=== PATIENT | female | born 1985 | race Two or more races ===

== ENCOUNTER 2016-12-26 17:12 | Emergency (ER) | payer MEDICAID ==
[~2016-12-26] VITALS: Ht 162.6 cm; Wt 87.8 kg
[2016-12-26 18:32] LABS: BLOOD UREA NITROGEN 6 mg/dL (7-18)
[2016-12-26] MEDS ORDERED: BUTALB/APAP/CAFFEINE 50MG/325MG/40MG PO ONE (19:00)
[2016-12-26 19:40] VITALS: BP 116/75
== END 2016-12-26 19:42 | disposition home or self-care (01) ==
LOC: ED 19:36
DX: G44.219 Episodic tension-type headache, not intractable (principal); J02.9 Acute pharyngitis, unspecified
CPT/HCPCS: 36415; 80048; 82040; 85025; 99284

== ENCOUNTER 2020-04-20 18:26 | Emergency (ER) | payer MEDICAID ==
[~2020-04-20] VITALS: Ht 162.6 cm; Wt 92.8 kg
[2020-04-20 18:36] VITALS: BP 104/46
--- NOTE | 2020-04-20 19:09 | NUR ---
FURNACE OPERATOR OIL OR GAS: PT AMBULATORY TO ROOM WITH STEADY GAIT AT THIS TIME WITH BUFFING MACHINE OPERATOR SEMIAUTOMATIC.
[2020-04-20] MEDS ORDERED: ALBUTEROL SULFATE 2.5 MG/3 ML NPPB ONE (19:30)
[2020-04-20] MEDS ORDERED: DEXAMETHASONE 4 MG TABLET PO ONE (19:30)
[2020-04-20] MEDS ORDERED: DEXAMETHASONE 4 MG TABLET ONE (19:54)
[2020-04-20] MEDS ORDERED: ALBUTEROL SULFATE 2.5 MG/3 ML ONE (19:55)
== END 2020-04-20 20:06 | disposition home or self-care (01) ==
LOC: ED 19:30
DX: J45.909 Unspecified asthma, uncomplicated (principal); R06.00 Dyspnea, unspecified; R07.89 Other chest pain; R05 Cough; J02.9 Acute pharyngitis, unspecified
CPT/HCPCS: 71046; 93005; 94640; 99283; J7613

== ENCOUNTER 2020-08-14 22:14 | Emergency (ER) | payer MEDICAID ==
[~2020-08-14] VITALS: Ht 162.6 cm; Wt 87.8 kg
[2020-08-14] MEDS ORDERED: SODIUM CHLORIDE FLUSH 10ML SYR IVF ONE (22:30)
[2020-08-14] MEDS ORDERED: ONDANSETRON 2MG/ML, 2ML IVPush ONE (22:30)
[2020-08-14] MEDS ORDERED: HYDROmorphone 2 MG/ML, 1ML IVPush PRN (22:30)
[2020-08-14] MEDS ORDERED: SODIUM CHLORIDE 0.9% 1,000ML IVBOLUS ONE (22:30)
[2020-08-14 22:42] LABS: MICROSCOPIC NOT IND
[2020-08-14] MEDS ORDERED: ONDANSETRON 2MG/ML, 2ML ONE (22:43)
[2020-08-14] MEDS ORDERED: HYDROmorphone 2 MG/ML, 1ML ONE (22:43)
[2020-08-14 22:52] LABS: BASOPHILS % (AUTO) 1 % (0-1); EOSINOPHILS % (AUTO) 2 % (1-7); LYMPHOCYTES % (AUTO) 33 % (22-44); MEAN CORPUSCULAR HEMOGLOBIN 30.8 pg (27.0-34.8); MONOCYTES % (AUTO) 7 % (2-9); NEUTROPHILS % (AUTO) 57 % (42-75); PLATELET COUNT 220 x10^3/uL (130-400); RED BLOOD COUNT 4.52 x10^6/uL (3.82-5.3); RED CELL DISTRIBUTION WIDTH 13.8 % (9.6-15.2)
[2020-08-14 22:53] LABS: ALANINE AMINOTRANSFERASE 38 U/L (12-78); ALBUMIN 3.8 g/dL (3.4-5.0); ANION GAP 5 mmol/L (5-15); CALCIUM 8.8 mg/dL (8.5-10.1); CHLORIDE 111 mmol/L (98-107); CREATININE 0.71 mg/dL (0.55-1.02)
[2020-08-14 22:54] LABS: MD NO
[2020-08-14 22:55] LABS: ALKALINE PHOSPHATASE 60 U/L (45-117); BILIRUBIN,TOTAL 0.4 mg/dL (0.2-1.0); TOTAL PROTEIN 7.7 g/dL (6.4-8.2)
--- NOTE | 2020-08-15 00:03 | NUR ---
Report to [facility]
--- NOTE | 2020-08-15 00:06 | NUR ---
REPORT FROM LEXY PHIPPS. PT CARE ASSUMED.
[2020-08-15 01:19] VITALS: BP 112/56
== END 2020-08-15 01:20 | disposition home or self-care (01) ==
LOC: ED 22:47
DX: N30.00 Acute cystitis without hematuria (principal); J45.909 Unspecified asthma, uncomplicated
CPT/HCPCS: 36415; 74176; 76700; 80053; 81003; 83690; 85025; 87086; 96361; 96374; 96375; 99285; J1170; J2405; J7030